=== PATIENT | female | born 1970 | race Two or more races ===

== ENCOUNTER 2020-06-18 08:08 | Emergency (ER) | payer OTHER ==
[~2020-06-18] VITALS: Ht 154.9 cm; Wt 74.8 kg
[~2020-06-18 08:08] MED LIST: IRON1TAB4 PO; ZANTAC150 M3 PO
[2020-06-18] MEDS ORDERED: IBU600 MG PO (09:15)
[2020-06-18] MEDS ORDERED: ZITHROMAX500 MG PO (09:15)
== END 2020-06-18 09:17 | disposition home or self-care (01) ==
LOC: ER 08:08
DX: J03.90 Acute tonsillitis, unspecified (principal)

== ENCOUNTER 2022-08-23 08:49 | Outpatient (CLI) | payer OTHER ==
[~2022-08-23 08:49] MED LIST changes: +IBU600 MG PO; +ZITHROMAX500 MG PO
== END 2022-08-23 08:50 | disposition home or self-care (01) ==
LOC: LAB 08:49
PROVIDERS: ATTEND Surgery
DX: Z01.818 Encounter for other preprocedural examination (principal); U07.1 COVID-19; E21.0 Primary hyperparathyroidism

== ENCOUNTER 2022-08-27 05:35 | Day surgery (SDC) | payer OTHER ==
[2022-08-27] MEDS ORDERED: PERCOCET 5-3251 EACH PO (09:36)
== END 2022-08-27 12:20 | disposition home or self-care (01) ==
LOC: CIR.AMB 05:35
PROVIDERS: ATTEND Surgery
DX: D35.1 Benign neoplasm of parathyroid gland (principal); E21.0 Primary hyperparathyroidism; Z20.822 Contact with and (suspected) exposure to COVID-19